=== PATIENT | female | born 1950 | race African-American/Black ===

== ENCOUNTER 2017-07-30 09:49 | Outpatient (CLI) | payer MEDICARE, OTHER ==
--- NOTE | 2017-07-30 14:21 | RAD ---
ESOPHAGRAM: Date: 07/30/17 HISTORY: Gastroesophageal reflux disease without esophagitis. Occasional episodes of difficulty swallowing. TECHNIQUE/FINDINGS: [employer] chest x-ray demonstrated postsurgical changes related to anterior cervical fusion of the lower cervical spine. Cardiac silhouette and pulmonary vasculature are within normal limits and the lungs are clear. Surgical clips overlie the right axillary region. There are degenerative changes in the spine. Double contrast esophagram was performed in the usual fashion. Esophagus demonstrates normal appeara nce without evidence of mucosal irregularity or focal area of narrowing. There is no evidence of a h iatal hernia. There is decreased primary esophageal peristalsis with a few tertiary contractions not ed. There is gastroesophageal reflux seen to the level of the mid esophagus. A 12.5 mm barium tablet was administered which traverses the esophagus as well as the GE junction fr eely and without holdup. IMPRESSION: 1. Gastroesophageal reflux to the level of the mid esophagus. There is no evidence of a hiatal palmer ia. 2. Decreased primary peristalsis as well as mild tertiary contractions involving the esophagus. Fin dings could be related to presbyesophagus. POS: JAYMIE
== END 2017-07-30 09:50 | disposition home or self-care (01) ==
LOC: RAD 09:49
PROVIDERS: ATTEND Family Medicine
DX: K21.9 Gastro-esophageal reflux disease without esophagitis (principal)
CPT/HCPCS: 74220

== ENCOUNTER 2017-09-10 08:00 | Outpatient (CLI) | payer MEDICARE, OTHER | END 2017-09-10 08:01 | disposition home or self-care (01) | LOC: BICMAMMO 08:00 | PROVIDERS: ATTEND Internal Medicine Medical Oncology | DX: Z12.31 Encounter for screening mammogram for malignant neoplasm of breast (principal); Z85.3 Personal history of malignant neoplasm of breast | CPT/HCPCS: 77063; G0202; 77067 ==

== ENCOUNTER 2017-09-25 15:34 | Emergency (ER) | payer MEDICARE, OTHER ==
[2017-09-25] MEDS ORDERED: Ondansetron HCl/PF 4 MG/2 ML Vial ONE (16:28)
[2017-09-25 17:09] LABS: #Basophils 0.1 thou/uL (0.0-0.2); #Eosinphils 0.1 thou/uL (0.0-0.7); #Lymphocytes 3.2 thou/uL (1.20-3.40); #Monocytes 0.5 thou/uL (0.11-0.59); #Neutrophils 3.7 thou/uL (1.40-6.50); %Basophils 0.8 % (0.0-1.0); %Monocytes 6.3 % (0.0-10.0); %Neutrophils 48.9 % (42.0-75.0); Hemoglobin 13.5 g/dL (12.0-16.0); Mean Corpuscular HGB CONC 31.9 g/dL (32.0-36.0); Mean Corpuscular Hemoglobin 29.3 pg (27.0-31.0); Mean Corpuscular Volume 91.6 fl (81.0-99.0); Platelet Count 301 thou/uL (130-400); RBC Distribution Width 12.8 % (11.5-14.5); Red Blood Cell (RBC) Count 4.61 mill/uL (4.20-5.40); White Blood Cell (WBC) Count 7.5 thou/uL (4.8-10.8)
[2017-09-25 17:31] LABS: ALT (SGPT) 19 U/L (8-55); AST (SGOT) 21 U/L (5-34); Albumin 4.3 g/dL (3.4-4.8); Alkaline Phosphatase 102 U/L (40-150); Anion Gap 19 mmol/L (10-20); BUN (Urea Nitrogen) 11 mg/dL (9.8-20.1); Bilirubin, Total 0.4 mg/dL (0.2-1.2); Calc. Creatinine Clearance 0 mL/min (70-130); Calcium 9.8 mg/dL (7.8-10.44); Carbon Dioxide 20 mmol/L (23-31); Chloride 102 mmol/L (98-107); Estimated GFR-MDRD Greater than 90; Globulin 3.2 g/dL (2.4-3.5); Glucose 213 mg/dL (80-115); Potassium 4.4 mmol/L (3.5-5.1); Protein, Total 7.5 g/dL (6.0-8.3); Sodium 137 mmol/L (136-145)
[2017-09-25 17:34] LABS: Troponin I 0.015 ng/mL (< 0.028)
[2017-09-25 17:47] LABS: Bilirubin Negative (Negative); Blood, Urine Negative (Negative); Clarity CLEAR (Clear); Glucose, Urine (Dipstick) >=1000 mg/dL (Negative); Leukocyte Negative (Negative); Nitrite Negative (Negative); Protein, Urine (Dipstick) Negative (Neg-Trace); Urobilinogen 0.2 mg/dL (0.2-1.0); pH, Urine 5.5 (5.0-9.0)
== END 2017-09-25 18:46 | disposition home or self-care (01) ==
LOC: ERS 15:34
DX: R11.2 Nausea with vomiting, unspecified (principal); G25.81 Restless legs syndrome; E03.9 Hypothyroidism, unspecified; E11.65 Type 2 diabetes mellitus with hyperglycemia; F41.9 Anxiety disorder, unspecified; Z79.4 Long term (current) use of insulin; Z79.899 Other long term (current) drug therapy
CPT/HCPCS: 36416; 80053; 81003; 82553; 84484; 85025; 96361; 96374; J2405

== ENCOUNTER 2018-09-21 15:41 | Outpatient (CLI) | payer MEDICARE, OTHER | END 2018-09-21 15:42 | disposition home or self-care (01) | LOC: EDBD → BICMAMMO 15:41 | PROVIDERS: ATTEND Internal Medicine Medical Oncology | DX: Z12.31 Encounter for screening mammogram for malignant neoplasm of breast (principal); Z85.3 Personal history of malignant neoplasm of breast | CPT/HCPCS: 77063; 77067 ==

== ENCOUNTER 2019-09-25 10:53 | Outpatient (CLI) | payer MEDICARE, OTHER ==
--- NOTE | 2019-09-25 16:08 | MMO ---
Bilateral MAMMO Bilat Screen [facility]. CLINICAL HISTORY: Patient is 69 years old and is seen for screening. The patient has no family history of breast cancer. 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 The patient has a history of right Ultrasound Guided Core Biopsy in November, - invasive ductal carcinoma, right Lumpectomy in November, - invasive ductal carcinoma and left Excisional Biopsy in December, - fibroadenoma. VIEWS: The views performed were: bilateral craniocaudal with tomosynthesis and bilateral mediolateral oblique with tomosynthesis. FILMS COMPARED: The present examination has been compared to prior imaging studies performed at [facility] on 07/12/2015, 08/11/2016, 09/10/2017 and 09/21/2018. This study has been interpreted with the assistance of computer-aided detection. MAMMOGRAM FINDINGS: The breasts are almost entirely fat. There are stable post-surgical scars seen in both breasts. There are no suspicious masses, suspicious calcifications, or new areas of architectural distortion. IMPRESSION: THERE IS NO MAMMOGRAPHIC EVIDENCE OF MALIGNANCY. A ROUTINE FOLLOW-UP MAMMOGRAM IN 1 YEAR IS RECOMMENDED. THE RESULTS OF THIS EXAM WERE SENT TO THE PATIENT. ACR BI-RADS Category 2 - Benign finding MAMMOGRAPHY NOTE: 1. A negative mammogram report should not delay a biopsy if a dominant of clinically suspicious mass is present. 2. Approximately 10% to 15% of breast cancers are not detected by mammography. 3. Adenosis and dense breasts may obscure an underlying neoplasm. Reported by: ALYSA MARTI MD Electonically Signed: [id number]
== END 2019-09-25 10:54 | disposition home or self-care (01) ==
LOC: BICMAMMO 10:53
PROVIDERS: ATTEND Internal Medicine Medical Oncology
DX: Z12.31 Encounter for screening mammogram for malignant neoplasm of breast (principal); Z85.3 Personal history of malignant neoplasm of breast
CPT/HCPCS: 77063; 77067

== ENCOUNTER 2019-11-20 10:27 | Outpatient (CLI) | payer MEDICARE, OTHER ==
--- NOTE | 2019-11-20 10:55 | RAD ---
EXAM: Chest 2 views: HISTORY: Shortness of breath COMPARISON: 11/22/2008 FINDINGS: There is a normal-sized cardiomediastinal silhouette. There is no evidence of consolidation, mass, or pleural effusion. Degenerative changes are seen in the spine. IMPRESSION: No evidence of acute cardiopulmonary disease
== END 2019-11-20 10:28 | disposition home or self-care (01) ==
LOC: BICRAD 10:27
PROVIDERS: ATTEND Internal Medicine Medical Oncology
DX: R07.9 Chest pain, unspecified (principal); C50.811 Malignant neoplasm of overlapping sites of right female breast
CPT/HCPCS: 71046

== ENCOUNTER 2020-08-21 09:12 | Outpatient (CLI) | payer MEDICARE, OTHER ==
--- NOTE | 2020-08-21 10:06 | BD ---
EXAM: Bone densitometry using DEXA HISTORY: 70 yo female. Screening for postmenopausal osteoporosis FINDINGS: L1--bone mineral density 0.798 g/sq cm; T score -1.7 ; Z score -0.4 L2--bone mineral density 1.206 g/sq cm; T score 1.6 ; Z score 3.2 L3--bone mineral density 1.424 g/sq cm; T score 3.1 ; Z score 4.7 L4--bone mineral density 1.661 g/sq cm; T score 5.5 ; Z score 7.1 Total L1-L4--bone mineral density 1.279 g/sq cm; T score 2.1 ; Z score 3.7 Left femoral neck--bone mineral density0.707; T score -1.3 ; Z score -0.2 Total proximal left femur--bone mineral density 0.853; T score -0.7 ; Z score 0.1 The 10 year fracture risk for a major osteoporotic fracture is 5.8% and for a hip fracture is 0.9%. IMPRESSION: Osteopenia
== END 2020-08-21 09:13 | disposition home or self-care (01) ==
LOC: BICMAMMO 09:12
PROVIDERS: ATTEND Family Medicine
DX: M81.0 Age-related osteoporosis without current pathological fracture (principal); M85.89 Other specified disorders of bone density and structure, multiple sites
CPT/HCPCS: 77080

== ENCOUNTER 2020-10-30 18:29 | Emergency (ER) | payer MEDICARE, OTHER ==
--- NOTE | 2020-10-30 21:43 | RAD ---
RIGHT HUMERUS TWO VIEWS: 10/30/20 HISTORY: Right arm pain and swelling starting yesterday. The bones are demineralized. There are arthritic changes of the shoulder joint. No lytic or blastic b stephany change and no evidence of fracture. IMPRESSION: No acute changes. POS: MONISHA
== END 2020-10-30 22:10 | disposition home or self-care (01) ==
LOC: ERS 18:29
DX: M79.601 Pain in right arm (principal); I89.0 Lymphedema, not elsewhere classified; E11.9 Type 2 diabetes mellitus without complications; E03.9 Hypothyroidism, unspecified; Z79.4 Long term (current) use of insulin; Z79.899 Other long term (current) drug therapy

== ENCOUNTER 2021-01-17 15:19 | Outpatient (CLI) | payer MEDICARE, OTHER | END 2021-01-17 15:20 | disposition home or self-care (01) | LOC: BICRAD 15:19 | PROVIDERS: ATTEND Family Medicine | DX: M25.512 Pain in left shoulder (principal) ==

== ENCOUNTER 2021-08-13 09:22 | Outpatient (CLI) | payer MEDICARE, OTHER | END 2021-08-13 09:23 | disposition home or self-care (01) | LOC: BICMRI 09:22 | PROVIDERS: ATTEND Family Medicine | DX: M12.812 Other specific arthropathies, not elsewhere classified, left shoulder (principal); C50.919 Malignant neoplasm of unspecified site of unspecified female breast; M75.122 Complete rotator cuff tear or rupture of left shoulder, not specified as traumatic; S46.112A Strain of muscle, fascia and tendon of long head of biceps, left arm, initial encounter; M24.112 Other articular cartilage disorders, left shoulder ==

== ENCOUNTER 2021-11-26 11:39 | Emergency (ER) | payer MEDICARE, OTHER | END 2021-11-26 15:12 | disposition home or self-care (01) | LOC: ERS 11:39 | DX: M62.838 Other muscle spasm (principal); E11.9 Type 2 diabetes mellitus without complications; E03.9 Hypothyroidism, unspecified; Z85.3 Personal history of malignant neoplasm of breast; Z79.84 Long term (current) use of oral hypoglycemic drugs; Z79.899 Other long term (current) drug therapy ==

== ENCOUNTER 2022-02-13 10:12 | Emergency (ER) | payer MEDICARE, OTHER ==
[2022-02-13] MEDS ORDERED: Ketorolac Tromethamine 30 MG/ML VIAL ONE (11:55)
== END 2022-02-13 12:00 | disposition home or self-care (01) ==
LOC: ERS 10:12
DX: M79.601 Pain in right arm (principal); Z85.3 Personal history of malignant neoplasm of breast; E11.9 Type 2 diabetes mellitus without complications; E03.9 Hypothyroidism, unspecified
CPT/HCPCS: 96372; J1885

== ENCOUNTER 2023-01-08 12:07 | Outpatient (CLI) | payer MEDICARE, OTHER | END 2023-01-08 12:08 | disposition home or self-care (01) | LOC: BICMAMMO 12:07 | PROVIDERS: ATTEND Internal Medicine Medical Oncology | DX: Z12.31 Encounter for screening mammogram for malignant neoplasm of breast (principal); M81.0 Age-related osteoporosis without current pathological fracture; M85.89 Other specified disorders of bone density and structure, multiple sites | CPT/HCPCS: 77063; 77067; 77080 ==